=== PATIENT | male | born 1995 | race Caucasian/White ===

== ENCOUNTER 2016-10-19 17:33 | Emergency (ER) | payer BC ==
[~2016-10-19] VITALS: Ht 185.4 cm; Wt 95.5 kg
[2016-10-19 17:40] VITALS: TEMP 97.8
[2016-10-19] MEDS ORDERED: ZOLOFT 100MG100 MG PO (17:44)
[2016-10-19] MEDS ORDERED: KLONOPIN2 MG PO (17:45)
[2016-10-19] MEDS ORDERED: REXULTI1 MG PO (17:45)
[2016-10-19 19:00] VITALS: BP 134/81; PULSE 81
== END 2016-10-19 19:00 | disposition home or self-care (01) ==
LOC: COL.ER 17:33
DX: S46.912A Strain of unspecified muscle, fascia and tendon at shoulder and upper arm level, left arm, initial encounter (principal); S50.312A Abrasion of left elbow, initial encounter; S50.311A Abrasion of right elbow, initial encounter; S30.811A Abrasion of abdominal wall, initial encounter; V00.131A Fall from skateboard, initial encounter; Y92.89 Other specified places as the place of occurrence of the external cause; F41.9 Anxiety disorder, unspecified; F32.9 Major depressive disorder, single episode, unspecified; F17.290 Nicotine dependence, other tobacco product, uncomplicated